=== PATIENT | female | born 1970 | race Caucasian/White ===

== ENCOUNTER 2017-05-26 11:55 | Emergency (ER) | payer OTHER ==
[~2017-05-26] VITALS: Ht 160 cm; Wt 73.9 kg
[2017-05-26 11:58] VITALS: TEMP 37.2; Ht 160 cm; Wt 73.9 kg
--- NOTE | 2017-05-26 13:10 | EMERGENCY ROOM VISIT NOTE ---
ED Visit Note First contact with patient: 12:43 CHIEF COMPLAINT: Jaw/neck pain HISTORY OF PRESENT ILLNESS: This 46-year-old female presents to the emergency department with complaint of left-sided jaw and neck pain for the past 2 days. She states she has been having symptoms of cough, runny nose, and sinus congestion for the past 2-3 days. She denies any fevers or chills, sore throat , difficulty swallowing, voice changes, difficulty breathing, ear pain, rash. She denies any dental pain issues. She has tried Tylenol for the pain without much relief. REVIEW OF SYSTEMS: Head: No headache, injury or neck pain. Throat: No sore throat, dysphagia, or hoarseness. Neck: No pain, stiffness, or swelling. Respiratory: No cough, change in sputum, wheezes, hemoptysis, shortness of breath, or stridor. PMH: The patient is healthy; there is no significant medical or surgical history. SOCIAL HISTORY: Patient lives at home. She is a smoker, 1ppd. PHYSICAL EXAM: Vital Signs: Reviewed Nurse's notes. CONSTITUTIONAL: No acute distress. Well appearing and well nourished. Alert and oriented X 4 with normal affect. HEENT: Normocephalic, atraumatic. Pupils equal, round and reactive to light, EOMI. TMs normal. Pharynx normal, no erythema, edema, or exudate. No gingivitis or dental abscess noted, no tenderness or edema within oral mucosa or mouth floor. No sinus tenderness to palpation. NECK: Supple, full active range of motion without discomfort. Bilateral anterior cervical lymphadenopathy, mobile and soft, tender to palpation, none greater than 1 cm. There is no facial swelling. RESPIRATORY: Clear to auscultation bilaterally with no wheezing, crackles, rhonchi or stridor. Equal expansion bilaterally. CARDIOVASCULAR: Regular rate and rhythm with no murmurs, rubs or gallops. Normal peripheral perfusion. No edema. INTEGUMENTARY: No rash or other significant dermatologic conditions noted. NEUROLOGIC: Cranial nerves II-XII grossly intact. No focal neurologic deficits noted. EMERGENCY DEPARTMENT COURSE: I examined the patient. Patient was offered Tylenol or Motrin for her pain, she states she has this at home and will take it later, she declines any medication here. Symptoms consistent with mild reactive lymph nodes, most likely secondary to a viral URI. Patient was given education on management of pain and symptoms, as well as return precautions should her symptoms worsen, she verbalized understanding. The patient was discharged home in stable condition and ambulatory. Current/Historical Medications No Active Prescriptions or Reported Meds Allergies Coded Allergies: No Known Allergies (Unverified , 05/26/17) Vital Signs Date Time Temp Pulse Resp B/P (MAP) Pulse Ox O2 Delivery O2 Flow Rate FiO2 05/26/17 13:30 86 20 126/74 97 05/26/17 11:58 37.2 102 16 152/94 99 Room Air Departure Information Impression Primary Impression: Viral URI with cough Additional Impression: Anterior cervical lymphadenopathy Dispostion Home / Self-Care Condition GOOD Prescriptions No Active Prescriptions or Reported Meds Referrals Chato Sepulveda M.D. (PCP) Patient Instructions ED Upper Resp Infec No Abx Tx, Lymphadenopathy, My [facility] Additional Instructions You most likely have a viral illness that is causing your lymph nodes to react and become painful. You may take ibuprofen 600 mg every 6 hours as needed for pain. Warm compresses to your jaw and neck to help alleviate discomfort. Drink plenty of fluids to stay well hydrated. For your sinus congestion, you can try normal saline nasal spray 4-5 times throughout the day to keep your nasal passages moist. You may also try Mucinex for your congestion. Breathe right strips are a non-medication option for managing your congestion at night when you sleep. Please follow-up with your PCP in the next week if your symptoms have not improved at all, or sooner if your symptoms are worsening. Please return to the emergency department for severe worsening pain, difficulty swallowing or breathing, changes in your voice, high fevers, or any other concerns. Problem Qualifiers
[2017-05-26 13:30] VITALS: BP 126/74; PULSE 86; O2SAT 97
== END 2017-05-26 13:31 | disposition home or self-care (01) ==
LOC: C.EDB 11:57 → C.EDD 13:31
DX: J06.9 Acute upper respiratory infection, unspecified (principal); R59.0 Localized enlarged lymph nodes; F17.210 Nicotine dependence, cigarettes, uncomplicated